=== PATIENT | female | born 1995 | race Caucasian/White ===

== ENCOUNTER 2017-05-12 12:01 | Inpatient (IN) | payer OTHER ==
[~2017-05-12] VITALS: Ht 152.4 cm; Wt 83.3 kg
[2017-05-12 12:44] VITALS: BP 140/77; PULSE 91; RESP 19; Ht 152.4 cm; Wt 83.3 kg
[2017-05-12] MEDS ORDERED: CEFAZOLIN 2 GM/50 ML (PMX) 50 ML IVPB ONE (12:47)
[2017-05-12] MEDS ORDERED: MISOPROSTOL 200 MCG TAB PR PRN ×2 (13:00→15:00)
[2017-05-12] MEDS ORDERED: METHYLERGONOVINE 0.2 MG INJ IM PRN ×2 (13:00→15:00)
[2017-05-12] MEDS ORDERED: OXYTOCIN 30 UNITS/LR 500 ML IV PRN ×2 (13:00→15:00)
[2017-05-12] MEDS ORDERED: CARBOPROST 250 MCG INJ IM PRN ×2 (13:00→15:00)
[2017-05-12] MEDS ORDERED: CEFAZOLIN 2 GM/50 ML (PMX) 50 ML IV SCH (13:00)
[2017-05-12] MEDS: LACTATED RINGER'S 1,000 ML IV SCH ×4 (13:02→22:16)
[2017-05-12 13:03] LABS: BASOPHIL # 0.1 10^3/ul (0.0-0.1); BASOPHILS % 0.6 % (0.0-2.0); EOSINOPHILS # 0.3 10^3/ul (0.0-0.5); EOSINOPHILS % 2.4 % (0.0-7.0); HEMATOCRIT 38.8 % (37.0-47.0); HEMOGLOBIN 13.3 g/dl (12.0-16.0); LYMPHOCYTES # 2.5 10^3/ul (0.8-2.9); LYMPHOCYTES % 21.6 % (15.0-51.0); MEAN CORPUSCULAR HEMOGLOBIN 29.5 pg (29.0-33.0); MEAN CORPUSCULAR HGB CONC 34.3 g/dl (32.0-37.0); MEAN PLATELET VOLUME 10.6 fl (7.4-10.4); MONOCYTE # 0.6 10^3/ul (0.3-0.9); MONOCYTES % 5.4 % (0.0-11.0); NEUTROPHIL # 7.6 10^3/ul (1.6-7.5); NEUTROPHILS % 66.1 % (39.0-77.0); PLATELET COUNT 208 10^3/UL (140-415); RED BLOOD COUNT 4.51 10^6/ul (4.20-5.40); RED CELL DISTRIBUTION WIDTH 13.5 % (11.5-14.5); WHITE BLOOD COUNT 11.5 10^3/ul (4.8-10.8)
--- NOTE | 2017-05-12 13:05 | PREOPHP ---
DATE OF ADMISSION: 05/12/2017 HISTORY OF PRESENT ILLNESS: Ms. Khloe Finley is a 22-year-old 3, para 1 EDC 05/18/2017, i ntrauterine at 39 weeks and 1 day gestational age, admitted today for an elective repeat c esarean delivery. She denies any contractions, vaginal bleeding or discharge. She had car e at [facility]; however, she was noncompliant. PAST MEDICAL HISTORY: None. MEDICATIONS: vitamins. PAST SURGICAL HISTORY: x1 previous section. OBSTETRIC HISTORY: x1 previous , x1 missed AB. GYNECOLOGIC HISTORY: Twelve, regular, 3-4 days. Denies any sexually transmitted diseases. Sexuall y active with 1 partner. She was diagnosed with chlamydia in her previous . SOCIAL HISTORY: Currently denies any smoking, drugs or alcohol; however, patient reports that she d iscontinued marijuana use in May 2016. FAMILY HISTORY: None. REVIEW OF SYSTEMS: All within normal except history of present illness. PHYSICAL EXAMINATION: HEENT: Within normal. LUNGS: CTA bilateral. CARDIOVASCULAR: S1, S2, regular rhythm. ABDOMEN: Gravid, nontender. Negative CVA bilateral. EXTREMITIES: Negative edema. No calf tenderness. PELVIC: Vaginal exam deferred. ASSESSMENT: A 22-year-old 3, para 1, intrauterine at 39 weeks and 1 day gestatio nal age, previous section x1, desires elective repeat delivery, declined . PLAN: Consent for a repeat delivery. Risks, benefits and alternatives explained. All que stions were answered. Dictated By: ONEIL KIRBY/CLEMENTINE Conf#: [id number] DID#: [id number]
[2017-05-12 13:37] LABS: INR 1.02; PROTIME 13.4 Sec (12.2-14.2)
[2017-05-12 13:38] LABS: PARTIAL THROMBOPLASTIN TIME 28.1 Sec (25.0-35.0)
[2017-05-12] MEDS ORDERED: METOCLOPRAMIDE 10 MG INJ ONE (13:55)
[2017-05-12] MEDS ORDERED: EPHEDrine SULFATE 50 MG/5 ML SYG ONE (13:55)
[2017-05-12] MEDS ORDERED: ONDANSETRON 4 MG INJ ONE (13:55)
[2017-05-12] MEDS ORDERED: OXYTOCIN 10 UNIT INJ ONE (13:55)
[2017-05-12] MEDS ORDERED: OXYTOCIN 30 UNITS/LR 500 ML IV ONE (13:55)
[2017-05-12] MEDS ORDERED: morphine SULFATE/PF (10 MG/10 ML) INJ ONE (13:56)
--- NOTE | 2017-05-12 14:42 | OPPN ---
Date/Time of Note Date/Time of Note DATE: 05/12/17 TIME: 14:40 Operative Report Planned Procedure Free Text/Dictation iup at 39 wks ga, previous cs, desires elective repeat cd, decline Procedure date May 12, 2017 Procedure(s) repeat low transverse CD Performed by see signature line Scrub Tech Dr. Carlin Pre-procedure diagnosis iup at 39 wks ga, previous cs, desires elective repeat cd, decline Anesthesia Type: spinal Post-Procedure Post-procedure diagnosis same Findings Live Baby [f], Apgars [9] and [9], weight [3715], position [], [] presentation [ ]cord. Estimated Blood Loss: 500 - 600 mls Specimen(s) none Grafts/Implant(s) none Complication(s) none ONEIL LOPEZ MD May 12, 2017 14:42
[2017-05-12 14:55] LABS: BARBITURATES Negative (NEGATIVE); BENZODIAZEPINES Negative (NEGATIVE); CANNABINOIDS Negative (NEGATIVE); COCAINE Negative (NEGATIVE)
[2017-05-12 14:56] LABS: OPIATES Negative (NEGATIVE)
[2017-05-12] MEDS ORDERED: LANOLIN 7 GM TUBE TOP PRN (15:00)
[2017-05-12] MEDS: CEFAZOLIN 2 GM/50 ML (PMX) 50 ML IV SCH ×2 (15:00→23:28)
[2017-05-12] MEDS ORDERED: OXYCODONE/ACETAMINOPHEN (5/325) TAB PO PRN (15:00)
[2017-05-12] MEDS: OXYTOCIN 30 UNITS/LR 500 ML IV SCH ×2 (15:24→18:19)
[2017-05-12] MEDS ORDERED: ONDANSETRON 4 MG INJ IV PRN (15:30)
[2017-05-12] MEDS ORDERED: morphine SULFATE/PF (10 MG/10 ML) INJ SPINAL ONE (15:30)
[2017-05-12] MEDS ORDERED: NALOXONE (0.4 MG/ML) INJ IV PRN (15:30)
[2017-05-12] MEDS ORDERED: morphine 4 MG/ML VIAL IV PRN (15:30)
[2017-05-12] MEDS ORDERED: EPHEDrine SULFATE 50 MG/5 ML SYG IV PRN (15:30)
[2017-05-12] MEDS ORDERED: KETOROLAC 30 MG INJ IV PRN (15:30)
[2017-05-12] MEDS ORDERED: morphine 2 MG INJ IV PRN (15:30)
[2017-05-12] MEDS ORDERED: DIPHENHYDRAMINE 50 MG INJ IV PRN (15:30)
[2017-05-12 17:30] VITALS: BP 118/61; PULSE 106; RESP 16
[2017-05-12] MEDS: IBUPROFEN 600 MG TAB PO SCH (18:00)
[2017-05-12 19:30] VITALS: BP 117/67; PULSE 101; RESP 18
[2017-05-12] MEDS: SENNA/DOCUSATE NA (8.6MG/50MG) TAB PO SCH (20:57)
[2017-05-12 23:30] VITALS: BP 119/65; PULSE 98; RESP 18
[2017-05-13 04:00] VITALS: BP 88/55; PULSE 90; RESP 18
[2017-05-13 05:06] VITALS: BP 106/57; PULSE 97; RESP 18
[2017-05-13] MEDS: LACTATED RINGER'S 1,000 ML IV SCH ×3 (05:59→12:44)
[2017-05-13] MEDS: IBUPROFEN 600 MG TAB PO SCH ×4 (06:00→18:16)
[2017-05-13] MEDS: CEFAZOLIN 2 GM/50 ML (PMX) 50 ML IV SCH (07:04)
[2017-05-13 08:00] VITALS: BP_SYST 113; BP_SYST 89; BP_DIAS 57; BP_DIAS 60; PULSE 78; PULSE 88; RESP 17
--- NOTE | 2017-05-13 08:32 | OPR ---
DATE OF OPERATION: PREOPERATIVE DIAGNOSES: Intrauterine at 39 weeks' gestational age, previous sect ion x1, desires elective repeat delivery. Declined . POSTOPERATIVE DIAGNOSES: Intrauterine at 39 weeks' gestational age, previous sec tion x1, desires elective repeat delivery. Declined . OPERATION PERFORMED: Repeat low transverse delivery via Pfannenstiel incision. SURGEON: Dr. Gabriela MD GRADUATE RN: Dr. Carlin. ANESTHESIA: Spinal. COMPLICATIONS: None. ESTIMATED BLOOD LOSS: 500 mL. FINDINGS: A viable female, 9 and 9 respectively at 1 and 5 minutes, weight 3715 grams. Rosa l uterus, tubes and ovaries. DESCRIPTION OF PROCEDURE: After explaining the risks, benefits and alternatives to the patient and consent signed in chart, the patient was taken to the operating room where spinal anesthesia was fou nd to be adequate. She was then prepared and draped in normal sterile fashion in dorsal supine posi tion with a leftward tilt. A Pfannenstiel skin incision was then made with a scalpel and carried to the underlying layer of fascia. The fascia was incised in the midline and the incision was extende d laterally with Armstrong scissors. The superior aspect of the fascial incision was grasped with curved clamps, elevated and the underlying rectus muscles dissected off bluntly. Attention was then turne d to the inferior aspect incision which in similar fashion was grasped, tented up with curved clamps and the rectus muscles dissected off bluntly. The rectus muscles were in midline, perito neum identified, tented up and entered sharply with Metzenbaum scissors. The peritoneal incision wa s extended superiorly with good visualization of bladder. The bladder blade was then inserted and t he vesicouterine peritoneum identified, grasped with pickups and entered sharply with Metzenbaum sci ssors. This incision was extended laterally and a bladder flap created digitally. The bladder blad e was then reinserted and the lower segment incised in transverse fashion with a scalpel. The uteri ne incision was extended laterally. The bladder blade was removed and the 's head delivered a traumatically. Nose and mouth were suctioned and cord clamped and cut. The was handed off t o awaiting histology tech. The placenta was then removed. The uterus exteriorized and cleared of all clots and debris. The uterine incision was repaired with 1-0 chromic in a running locked fashion. A second layer of same suture was used for imbrication obtaining excellent hemostasis. The uterus was returned to the abdomen. The gutters were cleared of all clots. The peritoneum and rectus abdo minis muscles were reapproximated with 3-0 Vicryl. The fascia was reapproximated with 0 Vicryl in a running fashion. The subcutaneous tissue was reapproximated with 2-0 plain gut in a running fashio n. The skin was closed with masoud. The patient tolerated procedure well. Sponge, lap and needle counts correct x2. The patient was taken to recovery room in stable condition. Dictated By: ONEIL KIRBY/CLEMENTINE Conf#: [id number] DID#: [id number]
[2017-05-13] MEDS: SENNA/DOCUSATE NA (8.6MG/50MG) TAB PO SCH ×2 (09:05→21:32)
[2017-05-13 11:30] LABS: BASOPHILS % 0.4 % (0.0-2.0); EOSINOPHILS # 0.1 10^3/ul (0.0-0.5); EOSINOPHILS % 1.7 % (0.0-7.0); HEMATOCRIT 29.9 % (37.0-47.0); LYMPHOCYTES # 1.3 10^3/ul (0.8-2.9); LYMPHOCYTES % 15.6 % (15.0-51.0); MEAN CORPUSCULAR HEMOGLOBIN 28.9 pg (29.0-33.0); MEAN CORPUSCULAR HGB CONC 33.4 g/dl (32.0-37.0); MEAN CORPUSCULAR VOLUME 86.4 fl (82.0-101.0); MEAN PLATELET VOLUME 10.4 fl (7.4-10.4); MONOCYTE # 0.5 10^3/ul (0.3-0.9); MONOCYTES % 6.4 % (0.0-11.0); NEUTROPHILS % 73.1 % (39.0-77.0); PLATELET COUNT 166 10^3/UL (140-415); RED BLOOD COUNT 3.46 10^6/ul (4.20-5.40); RED CELL DISTRIBUTION WIDTH 13.5 % (11.5-14.5); WHITE BLOOD COUNT 8.2 10^3/ul (4.8-10.8)
[2017-05-13 12:00] VITALS: BP 109/61; PULSE 87; RESP 16
[2017-05-13] MEDS ORDERED: CEFAZOLIN 2 GM/50 ML (PMX) 50 ML IVPB SCH (13:30)
[2017-05-13 16:00] VITALS: BP 108/59; PULSE 98; RESP 18
--- NOTE | 2017-05-13 19:13 | QN ---
Documentation Comment Progress note postoperative day 1 Patient seen and evaluated awake alert oriented 3 positive voiding positive ambulation tolerating diet Vital signs stable afebrile Abdomen soft nontender uterine fundus below umbilicus dressing clean and dry Extremity negative edema no calf tenderness Assessment status post repeat delivery postop day 1 stable afebrile Plan iron supplement Encourage ambulation ONEIL LOPEZ MD May 13, 2017 19:13
[2017-05-13 19:30] VITALS: BP 113/79; PULSE 101; RESP 18
[2017-05-13] MEDS ORDERED: INFLUENZA VIRUS VACCINE 0.5 ML SYG IM* ONE (20:00)
[2017-05-13] MEDS: FERROUS SULFATE (EC) 325 MG TAB PO SCH (21:32)
[2017-05-14] MEDS: IBUPROFEN 600 MG TAB PO SCH ×5 (00:11→23:36)
[2017-05-14 03:45] VITALS: BP 109/65; PULSE 97; RESP 18
[2017-05-14 08:30] VITALS: BP 118/77; PULSE 99; RESP 20
[2017-05-14] MEDS: SENNA/DOCUSATE NA (8.6MG/50MG) TAB PO SCH ×2 (09:11→21:24)
[2017-05-14] MEDS: FERROUS SULFATE (EC) 325 MG TAB PO SCH ×2 (09:12→21:23)
[2017-05-14] MEDS: OXYCODONE/ACETAMINOPHEN (5/325) TAB PO PRN ×2 (09:13→15:37)
[2017-05-14 15:45] VITALS: BP 132/68; PULSE 101; RESP 20
[2017-05-14] MEDS ORDERED: INFLUENZA VIRUS VACCINE 0.5 ML SYG IM* ONE (18:00)
--- NOTE | 2017-05-14 18:09 | QN ---
Documentation Comment Progress note postop day 2 Patient seen and evaluated awake alert oriented 3 positive ambulation tired diet positive flatulence positive bowel movement Vital signs stable afebrile Abdomen clean dry and intact negative distention nontender uterine fundus below umbilicus firm Extremity negative edema no calf tenderness Assessment status post repeat low transverse delivery postoperative day 2 stable afebrile Plan discharge home tomorrow follow-up in the office Friday to remove masoud ONEIL LOPEZ MD May 14, 2017 18:09
--- NOTE | 2017-05-14 18:10 | PD.PPDC ---
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
[2017-05-14 19:40] VITALS: BP 101/60; PULSE 89; RESP 18
--- NOTE | 2017-05-14 20:35 | DS ---
DATE OF ADMISSION: 05/12/2017 DATE OF DISCHARGE: 05/15/2017 PRIMARY DIAGNOSIS: Intrauterine at 39 weeks' gestational age, previous section x 1, desires elective repeat delivery, declined . PROCEDURE: Repeat low transverse delivery. CONDITION ON DISCHARGE: Stable. ACTIVITY: None per vagina, no heavy lifting x6 weeks. DIET: Regular. MEDICATIONS ON DISCHARGE: 1. Motrin. 2. Percocet. 3. Iron. 4. Colace. DISCHARGE SUMMARY: Ms. Khloe Finley is a 22-year-old female status post repeat low transverse brennan arean delivery on 05/12/2017. She had a viable female, Apgars 9 and 9 respectively at 1 and 5 minut es, weight 3715 grams. She had an uneventful postop day 1 and 2. She will be discharged on postop day 3. Her incision is clean, dry and intact. She is ambulating, tolerating diet, positive flatule nce, positive bowel movement. She will follow up in the office this Friday to remove her masoud. Dictated By: ONEIL KIRBY/NTS Conf#: [id number] DID#: [id number] CC: ONEIL LOPEZ MD;*EndCC*
[2017-05-15 04:00] VITALS: BP 100/65; PULSE 81; RESP 17
[2017-05-15] MEDS: IBUPROFEN 600 MG TAB PO SCH ×2 (05:31→12:05)
[2017-05-15 08:00] VITALS: BP 111/68; PULSE 87; RESP 18
[2017-05-15] MEDS: SENNA/DOCUSATE NA (8.6MG/50MG) TAB PO SCH (08:54)
[2017-05-15] MEDS: FERROUS SULFATE (EC) 325 MG TAB PO SCH (08:54)
[2017-05-15] MEDS: OXYCODONE/ACETAMINOPHEN (5/325) TAB PO PRN (08:55)
== END 2017-05-15 13:28 | disposition home or self-care (01) | DRG 766 ==
LOC: L-D 12:01 → PP1 17:24
PROVIDERS: ADMIT Obstetrics & Gynecology; ATTEND Obstetrics & Gynecology
PROC: 3E033VJ Introduction of Other Hormone into Peripheral Vein, Percutaneous Approach (ICD-10-PCS; 2017-05-12)
PROC: 10D00Z1 Extraction of Products of Conception, Low, Open Approach (ICD-10-PCS; principal; 2017-05-12 12:30)
DX: O34.211 Maternal care for low transverse scar from previous cesarean delivery (principal); E66.9 Obesity, unspecified; O99.214 Obesity complicating childbirth; Z68.35 Body mass index [BMI] 35.0-35.9, adult; Z3A.39 39 weeks gestation of pregnancy; Z37.0 Single live birth
CPT/HCPCS: 59025; 80307; 82947; 85025; 85610; 85730; 86592; 86850; 86900; 86901; 87340; 90686; 94760; 99464; J0690; J2274; J2405; J2590; J2765; J7120